=== PATIENT | male | born 1940 | race American Indian/Alaskan Native ===

== ENCOUNTER 2017-09-26 07:28 | Day surgery (SDC) | payer MEDICARE ==
[2017-09-26] MEDS ORDERED: ECOTRIN PO ONE (07:59)
[2017-09-26] MEDS ORDERED: NACL 0.9% 500 ML 500 ML IV SCH (08:00)
[2017-09-26 08:27] LABS: Basophils % (Auto) 1.1 % (0.0-1.8); Eosinophils % (Auto) 0.5 % (0.0-4.3); Hematocrit 26.9 % (35.5-45.6); Hemoglobin 9.1 gm/dl (11.8-15.2); Lymphocytes # (Auto) 0.9 K/mm3 (1.2-5.4); Mean Corpuscular HGB Conc 34 % (32-34); Mean Corpuscular Hemoglobin 30 pg (28-32); Mean Corpuscular Volume 90 fl (84-94); Monocytes # (Auto) 0.6 K/mm3 (0.0-0.8); Monocytes % (Auto) 14.7 % (0.0-7.3); Platelet Count 492 K/mm3 (140-440); Red Blood Count 2.99 M/mm3 (3.65-5.03); Red Cell Distribution Width 17.1 % (13.2-15.2)
[2017-09-26 08:37] LABS: INR 1.02 (0.87-1.13)
[2017-09-26 08:41] LABS: BUN/Creatinine Ratio 19; Blood Urea Nitrogen 15 mg/dL (9-20); Calcium 9.4 mg/dL (8.4-10.2); Hemolysis Index 16
[2017-09-26] MEDS ORDERED: HEPARIN/NS 5000 UNIT/500ML(CATH LAB) 1,000 ML IR ONE (09:52)
[2017-09-26] MEDS: SUBLIMAZE ONE ×2 (10:22→10:37)
[2017-09-26] MEDS: VERSED ONE ×2 (10:22→10:37)
[2017-09-26] MEDS: XYLOCAINE 2% INFILTRATI ONE ×2 (10:23→10:41)
--- NOTE | 2017-09-26 11:12 | Discharge Summary ---
Short Stay Discharge Plan Activity: advance as tolerated Weight Bearing Status: Partial Weight Bearing Diet: low fat, low cholesterol, low salt Wound: keep clean and dry Special Instructions: no heavy lifting (3 days) Follow up with: DINAH ROSAS MD [Primary Care Provider] - 7 Days BECKY ALLEN MD [Staff Physician] - 7 Days
--- NOTE | 2017-09-26 11:30 | Cardiac Catherization Report ---
CARDIAC CATHETERIZATION REASON FOR PROCEDURE: Abnormal thallium stress test, preoperative risk assessment. PROCEDURE: 1. Left heart catheterization. 2. Selective left and right coronary angiography. 3. Left ventricle angiography. DESCRIPTION OF PROCEDURE: The patient was prepped and draped in a sterile fashion after informed consent. The right femoral artery was entered using Seldinger technique followed by placement of a 6-Gabonese sheath. Selective left and right coronary angiography was performed using #4 right and left Chanell catheters. The right Chanell was used for left ventricle angiography. The catheters were removed, sheath removed, and hemostasis achieved using an Angio-Seal device. The patient was returned to the postprocedure unit in stable condition. There were no complications. FINDINGS: HEMODYNAMICS: Left ventricle end diastolic pressure was 15. Ascending aortic pressure was 156/78. Transaortic pressure gradient on pullback: On pullback across the aortic valve, there was a 15-17 mm transaortic gradient, this consistent with minimal to mild aortic stenosis. CORONARY ANGIOGRAPHY: There was a 10% ostial narrowing of the left main coronary artery. Following that, there were mild irregularities of the left main, left anterior descending artery and diagonal branches. The circumflex artery and its obtuse marginal branches also contained mild luminal irregularities. The right coronary artery was dominant. This vessel contained 20-30% stenosis of its proximal segment, otherwise mild luminal irregularities. There was normal left ventricular systolic function, ejection fraction 55-60%. CONCLUSION: 1. Mild nonobstructive irregularities as above. 2. Normal left ventricular systolic function, ejection fraction 55-60%. 3. Mild aortic stenosis, as evidenced by a 15-17 mm transaortic pressure gradient on pullback. RECOMMENDATION: Risk factor modification and medical therapy. JOB# [id number] CA/NTS
[2017-09-26] MEDS ORDERED: NACL 0.9% 1000 ML 1,000 ML IV SCH (12:00)
[2017-09-26 14:34] VITALS: BP 137/75
== END 2017-09-26 15:30 | disposition home or self-care (01) ==
LOC: CATHLABREC 07:28
PROVIDERS: ATTEND Internal Medicine Cardiovascular Disease
DX: I35.0 Nonrheumatic aortic (valve) stenosis (principal); E78.5 Hyperlipidemia, unspecified; I11.0 Hypertensive heart disease with heart failure; I50.20 Unspecified systolic (congestive) heart failure; Z79.82 Long term (current) use of aspirin; Z79.899 Other long term (current) drug therapy
CPT/HCPCS: 36415; 80048; 85025; 85610; 85730; 93005; 93010; 93458; 99156; 99157; C1760; C1769; C1894; J1644; J2250; J3010; J7040; Q9967